=== PATIENT | female | born 1995 | race Caucasian/White ===

== ENCOUNTER 2022-06-16 15:22 | Outpatient (RCR) | payer OTHER, MEDICAID, SELFPAY ==
[2022-06-16 16:13] LABS: Hematocrit 36.5 % (37.0-47.0); Hemoglobin 12.1 g/dL (12.0-15.0); Mean Corpuscular HGB Conc 33.2 g/dl (32-36); Mean Corpuscular Hemoglobin 31.1 pg (26-34); Mean Corpuscular Volume 93.8 fl (80-100); Mean Platelet Volume 8.5 fl (7.4-10.4); Platelet Count Result 286 k/mm3 (150-375); Red Blood Count 3.89 M/mm3 (4.2-5.4); Red Cell Distribution Width 12.2 % (11.5-14.5); White Blood Count 10.3 K/mm3 (4.5-10.0)
[2022-06-16 16:24] LABS: Alanine Aminotransferase 31 U/L (6-35); Albumin Level 3.8 g/dL (3.5-5.1); Alkaline Phosphatase 91 U/L (38-126); Anion Gap 5 mmol/L (8-16); Aspartate Amino Transferase 21 U/L (14-36); Bilirubin,Total 0.4 mg/dL (0.2-1.3); Blood Urea Nitrogen 8 mg/dL (7-17); Calcium 8.9 mg/dL (8.4-10.2); Carbon Dioxide 25 mmol/L (22-30); Chloride 107 mmol/L (98-107); Estimated Glomerular Filt Rate > 60; Glucose 100 mg/dL (65-110); Potassium 3.7 mmol/L (3.4-5.0); Sodium 137 mmol/L (137-145)
[2022-06-16 16:39] VITALS: PULSE 90
--- NOTE | 2022-06-16 16:54 | PC.NURSE ---
Report given and discharge order received from Bernadette Peck
[2022-06-22 18:38] LABS: Chenodeoxycholic Acid 0.6 umol/L (< OR = 3.9); Cholic Acid 0.7 umol/L (< OR = 2.8); Deoxycholic Acid 0.6 umol/L (< OR = 2.3); Total Bile Acids 1.8 umol/L (< OR = 8.3)
== END 2022-09-14 23:59 | disposition home or self-care (01) ==
LOC: ANHOBOP 15:22
PROVIDERS: PCP Family Medicine; Visit Provider Advanced Practice Midwife
DX: O16.3 Unspecified maternal hypertension, third trimester (principal); O36.8930 Maternal care for other specified fetal problems, third trimester, not applicable or unspecified; Z3A.33 33 weeks gestation of pregnancy
CPT/HCPCS: 36415; 59025; 80053; 82542; 85027

== ENCOUNTER 2022-07-20 15:42 | Inpatient (IN) | payer OTHER, MEDICAID, SELFPAY ==
[2022-07-20] VITALS (8 sets, daily range): BP systolic 117–144; BP diastolic 70–109; PULSE 90–103; TEMP 36.1; BMI 43.2
--- NOTE | 2022-07-20 16:17 | LDADM ---
This patient, Hedy Yen, was admitted to Labor/Delivery/Recovery 104 on 07/20/22 at 15:42. Plans for labor, pain management and were discussed with patient. Patient/family oriented to hospital policies and general routines including ID bracelet, bed and alarms, visiting hours, pain management, procedures, bathroom and other care routines, personal items, smoking policy, room service/diet and guest tray routines, infant security routines, and visiting hours. Patient/Family are encouraged to report perceived risks to care and to ask questions if they do not understand what they are told or what they should do. See OBIX for further documentation.
[2022-07-20 16:25] LABS: Basophils Percent Auto 0.4 % (0.2-1.2); Eosinophils Absolute Auto 0.1 K/mm3 (0-0.3); Eosinophils Percent Auto 0.7 % (0-4.4); Hematocrit 37.4 % (37.0-47.0); Hemoglobin 12.7 g/dL (12.0-15.0); Immature Granulocyte Absolute 0.09 K/mm3 (0.00-0.031); Immature Granulocyte Percent A 0.8 % (0-0.5); Lymphocytes Absolute Auto 1.94 K/mm3 (0.9-3.2); Lymphocytes Percent Auto 17.3 % (18.3-44.2); Mean Corpuscular Hemoglobin 30.9 pg (26-34); Mean Platelet Volume 8.9 fl (7.4-10.4); Monocytes Absolute Auto 0.6 K/mm3 (0.1-0.6); Monocytes Percent Auto 5.4 % (2.6-8.5); Neutrophils Absolute Auto 8.5 K/mm3 (1.3-6.7); Neutrophils Percent Auto 75.4 % (45.5-73.1); Platelet Count Result 305 k/mm3 (150-375); Red Blood Count 4.11 M/mm3 (4.2-5.4); Red Cell Distribution Width 12.4 % (11.5-14.5); White Blood Count 11.2 K/mm3 (4.5-10.0)
[2022-07-20] MEDS: DINOPROSTONE 10 MG VAG INSERT VAGINAL (16:31)
[2022-07-20 18:27] LABS: Amphetamine Screen Urine Negative (Negative); Barbiturate Screen Urine Negative (Negative); Benzodiazepines Screen Urine Negative (Negative); Cannabinoid Screen Urine Negative (Negative); Cocaine Screen Urine Negative (Negative); Methadone Screen Urine Negative (Negative); Opiate Screen Urine Negative (Negative); Phencyclidine Screen Urine Negative (Negative)
[2022-07-20] MEDS: LABETALOL HCL 100 MG TABLET PO (18:51)
--- NOTE | 2022-07-20 20:24 | WPDANESEPPF ---
Anes - Initial Pre Proc Eval Procedure: labor epidural Date/Time: 07/20/22 20:24 Surgeon: Izabel Blandon MD Pre Op Diagnosis: labor pain Pre Op Diagnosis: IOL Patient Data Age: 27 Gender: F Height: 1.8 m Weight: 140.5 kg Last Vital Signs Pulse 103 H 07/20/22 20:22 BP 132/95 H 07/20/22 20:22 Allergies Allergy/AdvReac Type Severity Reaction Status Date / Time No Known Allergies Allergy Verified 07/05/22 12:38 Home Medications Medication Instructions Recorded Confirmed Type labetalol 100 mg tablet 100 mg PO Q12H 03/26/22 07/20/22 History prenat.vits,jenise,cay-rahk-aiuqr 1 tablet PO DAILY 03/26/22 07/20/22 History Laboratory Tests 07/20/22 15:57 WBC 11.2 H K/mm3 (4.5-10.0) RBC 4.11 L M/mm3 (4.2-5.4) Hgb 12.7 g/dL (12.0-15.0) Hct 37.4 % (37.0-47.0) MCV 91.0 fl (80-100) MCH 30.9 pg (26-34) MCHC 34.0 g/dl (32-36) RDW 12.4 % (11.5-14.5) Plt Count 305 k/mm3 (150-375) MPV 8.9 fl (7.4-10.4) Immature Gran % (Auto) 0.8 H % (0-0.5) Neut % (Auto) 75.4 H % (45.5-73.1) Lymph % (Auto) 17.3 L % (18.3-44.2) [place] % (Auto) 5.4 % (2.6-8.5) Eos % (Auto) 0.7 % (0-4.4) Baso % (Auto) 0.4 % (0.2-1.2) Lymph # (Auto) 1.94 K/mm3 (0.9-3.2) [place] # (Auto) 0.6 K/mm3 (0.1-0.6) Eos # (Auto) 0.1 K/mm3 (0-0.3) Baso # (Auto) 0.0 K/mm3 (0.0-0.1) Abs Immat Gran (auto) 0.09 H K/mm3 (0.00-0.031) Absolute Neuts (auto) 8.5 H K/mm3 (1.3-6.7) Absolute Nucleated RBC 0.0 K/mm3 (0.0-0.012) Nucleated RBC % 0.0 % (0.0-0.2) Urine Opiates Screen Negative (Negative) Urine Methadone Screen Negative (Negative) Ur Barbiturates Screen Negative (Negative) Ur Phencyclidine Scrn Negative (Negative) Ur Amphetamine Screen Negative (Negative) U Benzodiazepines Scrn Negative (Negative) Urine Cocaine Screen Negative (Negative) U Cannabinoids Screen Negative (Negative) RPR Pending Blood Type O Positive Antibody Screen Negative Patient hx anesthesia problems: none Family hx anesthesia problems: none Results Review: All pre-operative results and documents have been reviewed as part of the pre-operative evaluation. [facility] Family History Family History (Updated 07/05/22 @ 12:40 by Marisol Sherman RN) Father Alcoholism Hypertension Multiple sclerosis Mother Depression Hypertension Thyroid condition Sibling Depression Social History Social History (Updated 03/26/22 @ 15:30 by Nelia Narvaez CMA) Smoking status: Never smoker Alcohol intake: never Substance use: former Lack of Transportation: No Lack of Food: Never True Current Housing: I Have Housing Concerned About Future Housing: No Difficulty Paying Gas/Electric Bills: No Difficulty Paying for Meds: No Currently Unemployed: No Education: Associate Degree Difficulty w/ Childcare or Family Care: No Spiritual care concerns: No Anes - Eval Final PreProcedure Day of Procedure 07/20/22 20:24 Patient weight: morbidly obese ASA classification: III Anesthetic plan: proceed Anesthesia type and monitoring: regional epidural and standard monitoring Results Review: All pre-operative results and documents have been reviewed as part of the pre-operative evaluation. Informed Consent: The patient's anesthetic plan and its attendant risks and benefits were discussed with the patient/family/POA. Questions were solicited and answers provided to the satisfaction of the patient/family/POA.
[2022-07-21] VITALS (176 sets, daily range): BP systolic 96–173; BP diastolic 45–126; PULSE 52–133; TEMP 36.4–37.1; O2SAT 84–100
[2022-07-21] MEDS: miSOPROStol 25 MCG TABLET PO (05:31)
--- NOTE | 2022-07-21 07:29 | WPDOBADMIT ---
Obstetrics - Admit Note Admission Note: record reviewed. No pertinent additions to the history and/or any subsequent changes in the physical findings that are not consistent with the expected course of the were found. IOL, CHTN, cervadil, cytotec and then will plan pitocin, anticipate vaginal delivery Additions to the history and/or subsequent changes in the physical findings follow. None.
[2022-07-21] MEDS: LABETALOL HCL 100 MG TABLET PO (09:25)
[2022-07-21] MEDS: LACTATED RINGERS 1,000 ML 125 ML IV CONT ×2 (09:30→15:49)
[2022-07-21] MEDS: OXYTOCIN 30 UNITS/NS 500 ML 30 UNITS/500 ML BAG 6 UNITS IV CONT (09:30)
[2022-07-21 10:03] LABS: Rapid Plasma Reagin Non-Reactive (NonReactive)
[2022-07-21] MEDS: fentaNYL CITRATE INJ (*CRX) 100 MCG/2 ML VIAL IV PUSH ×2 (13:34→14:40)
[2022-07-21] MEDS: SODIUM CHLORIDE 0.9% IV 300 ML 600 ML I-UTERINE (15:15)
--- NOTE | 2022-07-21 23:41 | PM.OBPRVD ---
OB - Delivery Note Procedure Delivery date: 07/21/22 Procedure: Events: Chronic Hypertension Induction method: AROM, Per Pitocin Protocol and Per Cervidil Protocol Delivery monitor: External FHT, External Uterine and Internal FHT Route of delivery: Laceration Description: Perineal - 2nd Degree Delivery repair: vicryl Specimen: No Quantitative Blood Loss (ml): 125 Anesthesia type: Epidural Disposition: Floor [place] Baby Date of : 07/21/22 Time of : 23:21 Weeks of gestation at delivery: 38 gender: Male Weight (pounds): 7 Weight (ounces): 10 presentation: vertex position: Left Occiput Anterior Placenta delivery description: Spontaneous Cord Vessel Description: 3 Vessels, Nuchal Cord, Loose and Clamped/Cut score one minute: 8 score five minutes: 9 Narrative: mother and baby skin to skin in stable condition
[2022-07-22] VITALS (15 sets, daily range): BP systolic 101–138; BP diastolic 52–83; PULSE 76–134; RESP 16–18; TEMP 36.4–36.7; O2SAT 95–100
[2022-07-22] MEDS: OXYTOCIN 30 UNITS/NS 500 ML 30 UNITS/500 ML BAG 125 UNITS IV CONT
[2022-07-22] MEDS: ACETAMINOPHEN 325 MG TABLET 650 MG PO (00:26)
[2022-07-22] MEDS: BENZOCAINE 20% AER SPR (*SP) 56 GM CAN 1 SPRAY TOPICAL (02:23)
[2022-07-22] MEDS: WITCH HAZEL 40 PADS 1 PAD TOPICAL (02:23)
--- NOTE | 2022-07-22 02:42 | PC.NURSE ---
Patient transferred to post room #292 via (w/c ). Support person present. Oriented to unit, room, information board, rooming in, admission packet and security measures. Patient verbalizes understanding.
[2022-07-22 05:57] LABS: Hematocrit 35.4 % (37.0-47.0); Hemoglobin 11.6 g/dL (12.0-15.0)
--- NOTE | 2022-07-22 07:39 | PM.OBPNVD ---
OB - PN: Subj Subjective Date/time seen: 07/22/22 07:39 Patient comments: no complaints, pain well controlled, incisional pain, tolerating diet and flatus present OB - PN: Obj Data Labs 07/22/22 05:39 Labs: Laboratory Results - last 24 hr 07/20/22 07/22/22 15:57 05:39 Hgb 11.6 L Hct 35.4 L RPR Non-reactive OB - PN A/P Plan day: 1 Plan: routine care Comments: No problems, routine care Time Spent With Patient Time: Total time spent is greater than 50% in coordination of care (as documented) at patient's floor/unit and/or counseling patient: Exam Const: General: comfortable, no acute distress and alert Resp: Effort & Inspection: normal respiratory effort Auscultation: no crackles, no rales and no rhonchi Cardio: Rate: regular rate Heart sounds: no click, no murmurs and no rubs GI: Inspection: non-distended GI Palp: No Tenderness to palpation present (GI) Auscultation: normal bowel sounds Other: Incision - CDI Extrem: General: normal to inspection, no pedal edema and no calf tenderness
[2022-07-22] MEDS: LABETALOL HCL 100 MG TABLET PO ×2 (09:06→21:00)
[2022-07-22] MEDS: DOCUSATE SODIUM 100 MG CAPSULE PO ×2 (09:06→17:10)
[2022-07-22] MEDS: MULTIVIT/MIN/PREN/FOL AC/IRON TABLET 1 TAB PO (09:06)
[2022-07-22] MEDS: LANOLIN (LANSINOH) 7.5 GM CREAM 1 APPLIC TOPICAL (09:07)
--- NOTE | 2022-07-22 09:08 | WPDANLDPN2 ---
Anes-Prog Note L&D Date/Time: 07/22/22 09:08 Neuro status: Neuro function grossly intact. Vital Signs: Last Vital Signs Temp 36.7 C 07/22/22 03:00 Pulse 76 07/22/22 09:06 Resp 18 07/22/22 03:00 BP 138/83 07/22/22 03:00 Pulse Ox 95 07/22/22 03:00 O2 Del Method Room Air 07/22/22 03:00 Pain score (VAS): 0 I/O: Intake & Output 07/21/22 07/22/22 07/22/22 23:59 07:59 15:59 Output Total 335 Balance -335 Patient feedback: Patient satisfied with anesthetic care.
--- NOTE | 2022-07-22 15:50 | PC.NURSE ---
[id number] Introductions were made, then consulted with patient to assess needs related to . Mother led the conversation with her?plans to feed?her infant and the?experience so far. Bernadette ADKINS took to the nursery for a circumcision. Mother has questions and is open to education. Encouraged understanding of the benefits of skin to skin (demonstrating unwrapping and placing upright on her chest), stimulating with massage touch, changing positions to encourage wakefulness, how to watch for early feeding cues, responsive feeding, feeding on demand (aiming for 8-12 times in 24 hours, about every 2-3 hours), milk production, building/maintaining a milk supply, duration of feeding, signs of adequate intake/output and how to record on the feeding sheet. Reviewed positioning and ear, shoulder, hip alignment, supporting the breast to facilitate a deep latch, asymmetrical latch (off-center), leading with the chin with a big, open, wide gape and body close to mother. Nipple care reviewed with optimal latch and good positioning. Reviewed good handwashing when or touching the breast/nipples to prevent infection. Resources used to facilitate learning were used with the visual handouts, QR codes, tool. Mother voiced understanding of skin to skin, stimulating with massage touch, responsive feedings, hand expressed colostrum, talking to infant to encourage if it has been 2 -2.5 hours since the start of the last , to call if infant does not latch, or if there is discomfort with . Parents voiced understanding of information and will call if there is a request for assistance if infant doesn't wake to eat about every 2-3 hours or if there's pain with latching. Reported to the primary RN.
[2022-07-23 07:20] VITALS: BP 141/75; PULSE 96; RESP 16; TEMP 36.7; O2SAT 99
--- NOTE | 2022-07-23 07:21 | PM.OBPNVD ---
OB - PN: Subj Subjective Date/time seen: 07/23/22 07:21 Patient comments: no complaints, pain well controlled and tolerating diet OB - PN: Obj Data Labs 07/22/22 05:39 OB - PN A/P Plan day: 2 Plan: routine care and discharge home Time Spent With Patient Time: Total time spent is greater than 50% in coordination of care (as documented) at patient's floor/unit and/or counseling patient: Exam Const: General: comfortable and no acute distress Resp: Effort & Inspection: normal respiratory effort Auscultation: no rales, no rhonchi and no wheezes Cardio: Rate: regular rate Heart sounds: no click, no murmurs and no rubs GI: GI Palp: Yes Soft to palpation and No Tenderness to palpation present (GI) Auscultation: normal bowel sounds Extrem: General: normal to inspection, no pedal edema and no calf tenderness
--- NOTE | 2022-07-23 07:22 | PM.OBDSVD ---
DS: Admitting Diagnosis Discharge Date 07/23/22 Admitting Diagnosis term OB - DS: Summary OB Procedures : None OB Procedures Intrapartum: Spontaneous Vag Delivery OB Procedures: : None Time Spent with Patient Time attestation: Total time spent providing and/or coordinating discharge services: Discharge Plan Discharge Discharging Clinician: Matheus Barrientos Patient Disposition: Home, Self-Care Activity: pelvic rest Diet: regular Patient Instructions: Antibiotic Form Stand Alone Forms: General Discharge Information Follow-up/Referrals: Matheus Barrientos MD [Physician] - Discharge Medications: No Action prenat.vits,jenise,hfw-easm-yohfo Tablet 1 tablet PO DAILY labetalol 100 mg tablet 100 mg PO Q12H Date of admission: 07/20/22 15:42 Primary Care Provider: Loan Muro Admitting Provider: Izabel Blandon Attending physician on admission: Izabel Blandon Condition: Stable
--- NOTE | 2022-07-23 07:30 | PC.NURSE ---
Patient viewed the discharge video Mother & Baby Care, The First Two Weeks . Patient was given the opportunity and encouraged to ask questions. Patient verbalized understanding of information shared and has been given the mother/baby guide for home reference.
[2022-07-23] MEDS: MULTIVIT/MIN/PREN/FOL AC/IRON TABLET 1 TAB PO (08:00)
[2022-07-23 08:15] VITALS: PULSE 89
[2022-07-23] MEDS: DOCUSATE SODIUM 100 MG CAPSULE PO (08:15)
[2022-07-23] MEDS: LABETALOL HCL 100 MG TABLET PO (08:15)
[2022-07-24 11:24] VITALS: BP 139/75; PULSE 88; RESP 20; TEMP 37.7; O2SAT 99
== END 2022-07-23 08:30 | disposition home or self-care (01) | DRG 807 ==
LOC: ANHLDR 07-21 14:58 → ANHOB2 07-22 10:54 → ANHLDR 07-26 09:27 → ANHOB2 07-26 09:27
PROVIDERS: Advanced Practice Midwife; Admitting Provider Obstetrics & Gynecology; PCP Family Medicine; Visit Provider Obstetrics & Gynecology
DX: O10.92 Unspecified pre-existing hypertension complicating childbirth (principal); Z37.0 Single live birth; O70.1 Second degree perineal laceration during delivery; O69.81X0 Labor and delivery complicated by cord around neck, without compression, not applicable or unspecified; Z3A.38 38 weeks gestation of pregnancy
CPT/HCPCS: 36415; 80307; 85014; 85018; 85025; 86592; 86850; 86900; 86901; A9270; J2590; J2795; J3010; J7030; J7120

== ENCOUNTER 2023-06-07 08:38 | Outpatient (CLI) | payer OTHER, SELFPAY ==
[2023-06-07 13:34] LABS: Hematocrit 43.4 % (37.0-47.0); Hemoglobin 13.8 g/dL (12.0-15.0); Mean Corpuscular HGB Conc 31.8 g/dl (32-36); Mean Corpuscular Hemoglobin 28.9 pg (26-34); Mean Corpuscular Volume 90.8 fl (80-100); Mean Platelet Volume 8.5 fl (7.4-10.4); Platelet Count Result 384 k/mm3 (150-375); Red Blood Count 4.78 M/mm3 (4.2-5.4); Red Cell Distribution Width 13.2 % (11.5-14.5); White Blood Count 8.2 K/mm3 (4.5-10.0)
[2023-06-07 13:38] LABS: Alanine Aminotransferase 36 U/L (6-35); Albumin Level 4.3 g/dL (3.5-5.1); Alkaline Phosphatase 104 U/L (38-126); Anion Gap 7 mmol/L (8-16); Aspartate Amino Transferase 48 U/L (14-36); Bilirubin,Total 0.4 mg/dL (0.2-1.3); Blood Urea Nitrogen 9 mg/dL (7-17); Calcium 8.8 mg/dL (8.4-10.2); Carbon Dioxide 29 mmol/L (22-30); Chloride 103 mmol/L (98-107); Cholesterol 156 mg/dL (0-200); Estimated Glomerular Filt Rate > 60; Glucose 102 mg/dL (65-110); HDL Direct 48 mg/dL; Potassium 3.5 mmol/L (3.4-5.0); Sodium 139 mmol/L (137-145); Triglycerides 73 mg/dL (<150)
[2023-06-07 13:48] LABS: LDL Cholesterol Direct 88 mg/dL
== END 2023-06-07 08:39 | disposition home or self-care (01) ==
LOC: ANHGOSHLAB 08:40
PROVIDERS: PCP Family Medicine; Visit Provider Family Medicine
DX: I10 Essential (primary) hypertension (principal); F41.9 Anxiety disorder, unspecified; Z79.899 Other long term (current) drug therapy
CPT/HCPCS: 36415; 80053; 80061; 84443; 85027

== ENCOUNTER 2024-02-22 18:16 | Inpatient (IN) | payer OTHER, SELFPAY ==
[2024-02-22] VITALS (27 sets, daily range): BP systolic 134–175; BP diastolic 64–138; PULSE 93–115; TEMP 36.3–36.6; O2SAT 98–100; BMI 48.9
[2024-02-22 18:59] LABS: Basophils Percent Auto 0.3 % (0.2-1.2); Eosinophils Absolute Auto 0.1 K/mm3 (0-0.3); Eosinophils Percent Auto 0.6 % (0-4.4); Hematocrit 37.9 % (37.0-47.0); Hemoglobin 12.6 g/dL (12.0-15.0); Immature Granulocyte Absolute 0.12 K/mm3 (0.00-0.031); Lymphocytes Absolute Auto 2.71 K/mm3 (0.9-3.2); Lymphocytes Percent Auto 23.7 % (18.3-44.2); Mean Corpuscular HGB Conc 33.2 g/dl (32-36); Mean Corpuscular Hemoglobin 30.1 pg (26-34); Mean Corpuscular Volume 90.5 fl (80-100); Mean Platelet Volume 9.2 fl (7.4-10.4); Monocytes Absolute Auto 0.7 K/mm3 (0.1-0.6); Monocytes Percent Auto 5.8 % (2.6-8.5); Neutrophils Absolute Auto 7.8 K/mm3 (1.3-6.7); Neutrophils Percent Auto 68.6 % (45.5-73.1); Platelet Count Result 273 k/mm3 (150-375); Red Blood Count 4.19 M/mm3 (4.2-5.4); Red Cell Distribution Width 13.2 % (11.5-14.5); White Blood Count 11.4 K/mm3 (4.5-10.0)
--- NOTE | 2024-02-22 19:01 | LDADM ---
This patient, Hedy Yen, was admitted to Labor/Delivery/Recovery 103 on 02/22/24 at 18:16. Plans for labor, pain management and were discussed with patient. Patient/family oriented to hospital policies and general routines including ID bracelet, bed and alarms, visiting hours, pain management, procedures, bathroom and other care routines, personal items, smoking policy, room service/diet and guest tray routines, infant security routines, and visiting hours. Patient/Family are encouraged to report perceived risks to care and to ask questions if they do not understand what they are told or what they should do. See OBIX for further documentation.
[2024-02-22] MEDS: LACTATED RINGERS 1,000 ML 125 ML IV CONT ×2 (19:06→23:50)
[2024-02-22 19:09] LABS: Uric Acid 5.4 mg/dL (2.5-7.5)
[2024-02-22 19:12] LABS: Creatinine Urine 112.9 mg/dL; Total Protein Urine Random 24 mg/dL; Ur Ttl Prot Creatinine Ratio 0.21 mg/mg (0-0.20)
[2024-02-22 19:14] LABS: Alanine Aminotransferase 16 U/L (6-35); Albumin Level 3.5 g/dL (3.5-5.1); Alkaline Phosphatase 149 U/L (38-126); Anion Gap 6 mmol/L (4-12); Aspartate Amino Transferase 20 U/L (14-36); Bilirubin,Total 0.3 mg/dL (0.2-1.3); Blood Urea Nitrogen 11 mg/dL (7-17); Calcium 9.1 mg/dL (8.4-10.2); Carbon Dioxide 20 mmol/L (22-30); Chloride 109 mmol/L (98-107); Estimated CRCL calculation 200 ml/min; Estimated Glomerular Filt Rate > 60; Glucose 88 mg/dL (65-110); Potassium 3.9 mmol/L (3.4-5.0); Sodium 135 mmol/L (137-145)
[2024-02-22] MEDS: OXYTOCIN 30 UNITS/NS 500 ML 30 UNITS/500 ML BAG IV CONT (19:15)
--- NOTE | 2024-02-22 19:21 | WPDOBADMIT ---
Obstetrics - Admit Note Admission Note: record reviewed. No pertinent additions to the history and/or any subsequent changes in the physical findings that are not consistent with the expected course of the were found. Additions to the history and/or subsequent changes in the physical findings follow. Admit for GHTN, sve AROM clear fluid, anticipate vaginal delivery
[2024-02-22 19:41] LABS: Rapid Plasma Reagin Non-Reactive (NonReactive)
[2024-02-22 19:57] LABS: HIV 1/2 Ab P24 Ag Result Negative (Negative)
[2024-02-22] MEDS: ACETAMINOPHEN 500 MG TABLET 1000 MG PO (23:05)
[2024-02-23] VITALS (155 sets, daily range): BP systolic 99–204; BP diastolic 46–142; PULSE 89–138; RESP 18–20; TEMP 36.1–36.7; O2SAT 98–100
--- NOTE | 2024-02-23 00:09 | P.PNAN_ITS ---
Anes - Eval Pre Procedure Procedure: Labor Epidural Date/Time: 02/23/24 00:09 Pre Op Diagnosis: IOL Patient Data Age: 28 Gender: F Height: 1.8 m Weight: 159 kg Last Vital Signs Temp 36.3 C L 02/22/24 23:55 Pulse 97 02/23/24 00:01 BP 141/79 H 02/23/24 00:01 Pulse Ox 100 02/23/24 00:08 O2 Del Method Room Air 02/22/24 18:59 Allergies Allergy/AdvReac Type Severity Reaction Status Date / Time No Known Allergies Allergy Verified 01/31/24 14:25 Home Medications Medication Instructions Recorded Confirmed Type aspirin 81 mg tablet 81 mg PO DAILY 01/31/24 01/31/24 History vits no.126-ferrous fum 1 tablet PO DAILY 01/31/24 01/31/24 History 28 mg iron-folic acid 800 mcg tablet (Classic ) Laboratory Tests 02/22/24 02/22/24 18:29 18:30 WBC 11.4 H K/mm3 (4.5-10.0) RBC 4.19 L M/mm3 (4.2-5.4) Hgb 12.6 g/dL (12.0-15.0) Hct 37.9 % (37.0-47.0) MCV 90.5 fl (80-100) MCH 30.1 pg (26-34) MCHC 33.2 g/dl (32-36) RDW 13.2 % (11.5-14.5) Plt Count 273 k/mm3 (150-375) MPV 9.2 fl (7.4-10.4) Immature Gran % (Auto) 1.0 H % (0-0.5) Neut % (Auto) 68.6 % (45.5-73.1) Lymph % (Auto) 23.7 % (18.3-44.2) [place] % (Auto) 5.8 % (2.6-8.5) Eos % (Auto) 0.6 % (0-4.4) Baso % (Auto) 0.3 % (0.2-1.2) Lymph # (Auto) 2.71 K/mm3 (0.9-3.2) [place] # (Auto) 0.7 H K/mm3 (0.1-0.6) Eos # (Auto) 0.1 K/mm3 (0-0.3) Baso # (Auto) 0.0 K/mm3 (0.0-0.1) Abs Immat Gran (auto) 0.12 H K/mm3 (0.00-0.031) Absolute Neuts (auto) 7.8 H K/mm3 (1.3-6.7) Absolute Nucleated RBC 0.000 K/mm3 (0.0-0.012) Nucleated RBC % 0.0 % (0.0-0.2) Sodium 135 L mmol/L (137-145) Potassium 3.9 mmol/L (3.4-5.0) Chloride 109 H mmol/L (98-107) Carbon Dioxide 20 L mmol/L (22-30) Anion Gap 6 mmol/L (4-12) BUN 11 mg/dL (7-17) Creatinine 0.60 L mg/dL (0.7-1.0) Estim Creat Clear Calc 200 ml/min Estimated GFR > 60 (59 - ) Glucose 88 mg/dL (65-110) Uric Acid 5.4 mg/dL (2.5-7.5) Calcium 9.1 mg/dL (8.4-10.2) Total Bilirubin 0.3 mg/dL (0.2-1.3) AST 20 U/L (14-36) ALT 16 U/L (6-35) Alkaline Phosphatase 149 H U/L (38-126) Total Protein 7.0 g/dL (6.3-8.2) Albumin 3.5 g/dL (3.5-5.1) U Random Total Protein 24 mg/dL Urine Creatinine 112.9 mg/dL Protein/Creat Ratio 2 0.21 H mg/mg (0-0.20) RPR Non-reactive (NonReactive) HIV 1&2 Ab/P24 Ag 4thGn Negative (Negative) Blood Type O Positive Antibody Screen Negative : gestational age (ALEXUS 02/25/24, ) Patient hx anesthesia problems: none Family hx anesthesia problems: none Results Review: All pre-operative results and documents have been reviewed as part of the pre- operative evaluation. [facility] Family History Family History Father Alcoholism Hypertension Multiple sclerosis Mother Depression Hypertension Thyroid condition Sibling Depression Social History Social History Smoking status: Never smoker Second hand tobacco smoke exposure: No Alcohol intake: never Substance use: never Do You Feel Safe in your Home?: Yes Lack of Transportation: No Lack of Food: Never True Current Housing: I Have Housing Concerned About Future Housing: No Difficulty Paying Gas/Electric Bills: No Difficulty Paying for Meds: No Currently Unemployed: No Education: Associate Degree Difficulty w/ Childcare or Family Care: No Spiritual care concerns: No Exam Day of Procedure 02/23/24 00:09 Patient weight: morbidly obese Heart: regular rate and rhythm Lungs: normal air movement Airway: Mallampati scale class II Neurological: alert and oriented
[2024-02-23] MEDS: ONDANSETRON INJ 4 MG/2 ML VIAL IV PUSH (02:28)
[2024-02-23] MEDS: FAMOTIDINE 20 MG/2 ML VIAL IV PUSH (02:29)
[2024-02-23] MEDS: LACTATED RINGERS 1,000 ML 125 ML IV CONT (05:46)
--- NOTE | 2024-02-23 08:50 | P.PCNOB_ITS ---
OB - Vaginal Delivery Note Procedure Delivery date: 02/23/24 Events: Gestational Hypertension Induction method: AROM and Per Pitocin Protocol Delivery monitor: Internal FHT and Internal Uterine Route of delivery: Episiotomy description: None Laceration Description: None Specimen: No Quantitative Blood Loss (ml): 75 Anesthesia type: Epidural Disposition: Floor Complications: No immediate complications [place] Baby Date of : 02/23/24 Time of : 08:40 Gestational Age by Date: 39 Infant gender: Female presentation: vertex position: Left Occiput Anterior Placenta delivery description: Spontaneous Cord Vessel Description: 3 Vessels, Nuchal Cord (x2), Loose and Reduced score one minute: 8 score five minutes: 9
[2024-02-23] MEDS: OXYTOCIN 30 UNITS/NS 500 ML 30 UNITS/500 ML BAG 125 UNITS IV CONT (09:09)
[2024-02-23] MEDS: MULTIVIT/MIN/PREN/FOL AC/IRON TABLET 1 TAB PO (11:59)
[2024-02-23] MEDS: ACETAMINOPHEN 325 MG TABLET 650 MG PO ×2 (11:59→18:49)
--- NOTE | 2024-02-23 13:13 | OBPPTRN ---
1113-Patient transferred to post room #286 via wheelchair. Support person present. Oriented to unit, room, information board, rooming in, admission packet and security measures. Patient verbalizes understanding.
--- NOTE | 2024-02-23 13:31 | PC.NURSE ---
Addendum entered by Gail Izaguirre RN 02/23/24 13:36: admission folder given and reviewed. Addendum entered by Gail Izaguirre RN 02/23/24 13:33: 1210- Mother had some concerns regarding if was 'getting enough' and if she should supplement with formula after feeding. We discussed this would be her choice but that there was no medical necessity to supplement. We discussed milk production and weight, output, jaundice for infant. Mother was very receptive to the education provided. Original Note: Observed mother feeding on the [left] breast in [cradle] position. Infant [was] able to maintain an appropriate latch. Mother [declines] nipple pain/discomfort [throughout feeding]. Encouraged mother to keep infant awake and nursing at the breast for 15 minutes. Mother taught to listen for swallowing during feedings. K0t Reviewed using the blue feeding sheet to record time and duration of feeding. Mother voiced understanding of the education shared, to call for assistance if the infant does not latch or if there is discomfort with . name/number on communication board. Reported to the Primary RN.?
[2024-02-23] MEDS: IBUPROFEN 600 MG TABLET PO (18:50)
[2024-02-24] MEDS: IBUPROFEN 600 MG TABLET PO (00:42)
[2024-02-24] MEDS: ACETAMINOPHEN 325 MG TABLET 650 MG PO (00:43)
[2024-02-24 01:53] VITALS: BP 142/73; PULSE 93; RESP 16; TEMP 36.4; O2SAT 99
[2024-02-24 05:17] LABS: Hematocrit 33.5 % (37.0-47.0); Hemoglobin 10.7 g/dL (12.0-15.0)
--- NOTE | 2024-02-24 07:55 | PM.OBPNVD ---
OB - PN: Subj Subjective Date/time seen: 02/24/24 07:55 Interval history: pp day 1 doing well GHTN denies wood visual changes, epigastric pain desires d/c home f/u office one week bp check OB - PN: Obj Data Labs 02/24/24 04:58 02/22/24 18:29 Labs: Laboratory Results - last 24 hr 02/24/24 04:58 Hgb 10.7 L Hct 33.5 L OB - PN A/P Plan day: 1 Plan: routine care and discharge home Time Spent With Patient Time: Total time spent is greater than 50% in coordination of care (as documented) at patient's floor/unit and/or counseling patient: Review of Systems Review of Systems: All systems reviewed & are unremarkable except as noted in HPI and below Exam Const: General: cooperative and healthy appearing Chest: Chest palpation & inspection: normal inspection of the chest Cardio: Rate: regular rate
--- NOTE | 2024-02-24 07:57 | P.DS_ITS ---
DS: Admitting Diagnosis Discharge Date 02/24/24 Admitting Diagnosis IOL, GHTN DS: Discharge Diagnosis Discharge Diagnosis (1) Vaginal delivery: Code(s): O80 - Encounter for full-term uncomplicated delivery Status: Acute OB - DS: Summary OB Procedures : None OB Procedures Intrapartum: Spontaneous Vag Delivery OB Procedures: : None Peripartum Data Laceration Description: None Episiotomy description: None Time Spent with Patient Time attestation: Total time spent providing and/or coordinating discharge services: DS: Data Data Completed and Pending Labs on day of discharge: Labs from last 24 hours 02/24/24 04:58 Hgb 10.7 L Hct 33.5 L Discharge Plan Discharge Attending physician on discharge: Jovany Barrientos Discharging Clinician: Sujatha Peck Patient Disposition: Home, Self-Care Activity: pelvic rest Diet: regular Patient Instructions: Antibiotic Form Stand Alone Forms: General Discharge Information Follow-up/Referrals: Sujatha Peck, CNM [Certified Nurse Lift Truck Mechanic] - 1 Week Discharge Medications: New ibuprofen 600 mg Tablet 600 mg PO Q6H PRN (Reason: Cramping) Qty: 30 0RF Continued Classic 28 mg iron- 800 mcg Tablet 1 tablet PO DAILY Discontinued aspirin 81 mg Tablet 81 mg PO DAILY Date of admission: 02/22/24 18:16 Primary Care Provider: Loan Muro Admitting Provider: Jovany Barrientos Attending physician on admission: Jovany Barrientos Condition: Stable
[2024-02-24 08:00] VITALS: PULSE 105; RESP 18; O2SAT 100
[2024-02-24 08:40] VITALS: BP 149/94; PULSE 105; RESP 18; TEMP 37.1; O2SAT 100
--- NOTE | 2024-02-24 09:04 | PC.NURSE ---
Mother verbalizes she is able to independently latch with appropriate positioning and alignment. She denies any nipple discomfort and is responsively . Infant is currently meeting outcomes for weight, output, jaundice, blood sugar and feeding frequencies of 8-12 times in 24 hours. is receiving supplementation after feedings of formula, maternal request. She will begin pumping once she is home and give her pumped milk instead of formula if appears to be unsatisfied after feedings. Mother declines any additional assistance or education at this time. Mother is encouraged to call for assistance if her doesn?t latch, pain with latching, questions or concerns. Mother voiced understanding of information shared along with the mom/baby guide for an additional resource. Reported to the Primary RN.
[2024-02-24] MEDS: MULTIVIT/MIN/PREN/FOL AC/IRON TABLET 1 TAB PO (09:12)
[2024-02-24 12:15] VITALS: BP 142/90; PULSE 106; RESP 16; TEMP 36.6; O2SAT 100
--- NOTE | 2024-02-24 14:15 | WPDANLDPN2 ---
Anes-Prog Note L&D Date/Time: 02/24/24 14:15 Comfortable throughout: labor and delivery Neuraxial method: epidural Epidural/Spinal procedure site: clean & non-tender Neuro status: Neuro function grossly intact. Cardiovascular status: normal Respiratory status: normal Airway patency: baseline Mental status: baseline Post-Op hydration status: normal Vital Signs: Last Vital Signs Temp 97.9 F 02/24/24 12:15 Pulse 106 H 02/24/24 12:15 Resp 16 02/24/24 12:15 BP 142/90 H 02/24/24 12:15 Pulse Ox 100 02/24/24 12:15 O2 Del Method Room Air 02/24/24 08:00 Pain score (VAS): 0/10 I/O: Intake & Output 02/23/24 02/24/24 02/24/24 23:59 07:59 15:59 Intake Total 300 100 900 Output Total 450 750 Balance -150 100 150 Post-procedural complaints: none Patient feedback: Patient satisfied with anesthetic care.
--- NOTE | 2024-02-24 15:38 | PC.NURSE ---
1000- Patient was given the opportunity to view the discharge video Mother & Baby Care, The First Two Weeks and to ask questions. Patient declined viewing the video and has been given the mother/baby guide for home reference.
[2024-02-25 11:28] VITALS: BP 146/83; PULSE 109; RESP 16; TEMP 36.9; O2SAT 100
== END 2024-02-24 12:45 | disposition home or self-care (01) | DRG 560 ==
LOC: ANHLDR 18:19 → ANHOB2 02-23 11:17
PROVIDERS: Admitting Provider Obstetrics & Gynecology; PCP Family Medicine; Referring Provider Advanced Practice Midwife; Visit Provider Obstetrics & Gynecology
DX: O13.4 Gestational [pregnancy-induced] hypertension without significant proteinuria, complicating childbirth (principal); Z37.0 Single live birth; Z3A.39 39 weeks gestation of pregnancy; O69.81X0 Labor and delivery complicated by cord around neck, without compression, not applicable or unspecified
CPT/HCPCS: 36415; 80053; 82570; 84156; 84550; 85014; 85018; 85025; 86592; 86703; 86850; 86900; 86901; A9270; G0432; J2405; J2590; J2795; J7120

== ENCOUNTER 2024-02-25 11:36 | Outpatient (CLI) | payer OTHER, SELFPAY ==
[2024-02-25 12:30] LABS: Basophils Percent Auto 0.4 % (0.2-1.2); Eosinophils Absolute Auto 0.2 K/mm3 (0-0.3); Eosinophils Percent Auto 2.3 % (0-4.4); Hematocrit 36.2 % (37.0-47.0); Lymphocytes Absolute Auto 2.38 K/mm3 (0.9-3.2); Lymphocytes Percent Auto 24.5 % (18.3-44.2); Mean Corpuscular HGB Conc 33.1 g/dl (32-36); Mean Corpuscular Hemoglobin 30.3 pg (26-34); Mean Corpuscular Volume 91.4 fl (80-100); Monocytes Absolute Auto 0.5 K/mm3 (0.1-0.6); Monocytes Percent Auto 4.8 % (2.6-8.5); Neutrophils Absolute Auto 6.5 K/mm3 (1.3-6.7); Platelet Count Result 281 k/mm3 (150-375); Red Blood Count 3.96 M/mm3 (4.2-5.4); Red Cell Distribution Width 13.6 % (11.5-14.5); White Blood Count 9.7 K/mm3 (4.5-10.0)
[2024-02-25 12:34] LABS: Alanine Aminotransferase 19 U/L (6-35); Albumin Level 3.6 g/dL (3.5-5.1); Alkaline Phosphatase 110 U/L (38-126); Anion Gap 5 mmol/L (4-12); Aspartate Amino Transferase 26 U/L (14-36); Bilirubin,Total 0.4 mg/dL (0.2-1.3); Blood Urea Nitrogen 12 mg/dL (7-17); Calcium 9.2 mg/dL (8.4-10.2); Carbon Dioxide 25 mmol/L (22-30); Chloride 107 mmol/L (98-107); Estimated Glomerular Filt Rate > 60; Glucose 88 mg/dL (65-110); Potassium 4.3 mmol/L (3.4-5.0); Sodium 137 mmol/L (137-145); Uric Acid 6.2 mg/dL (2.5-7.5)
[2024-02-25 12:38] VITALS: BP 145/89; PULSE 108
--- NOTE | 2024-02-25 13:10 | PC.NURSE ---
Patient with no pre-e symptoms. Elevated blood pressure at follow up appointment. Dr. Barrientos notified of lab results and blood pressures. Okay to discharge.
== END 2024-02-25 12:50 | disposition home or self-care (01) ==
LOC: ANHOBOP 11:40 → ANHOBPP 12:07
PROVIDERS: PCP Family Medicine; Visit Provider Obstetrics & Gynecology
DX: O13.9 Gestational [pregnancy-induced] hypertension without significant proteinuria, unspecified trimester (principal); Z3A.00 Weeks of gestation of pregnancy not specified
CPT/HCPCS: 36415; 80053; 84550; 85025